=== PATIENT | male | born 1960 | race Caucasian/White ===

== ENCOUNTER 2016-07-07 10:51 | Emergency (ER) | payer OTHER ==
[~2016-07-07] VITALS: Wt 101.0 kg
[~2016-07-07 10:51] MED LIST: ALBU2.5V3 NEB; AMLO-218 PO; ASPI81TA3 PO; ATOR10TA65 PO; HYDR-3670 IV*; HYDR-906 PO; ISOS30TA5 PO; LISI40TA9 PO; LORA-441 PO; METO-429 PO; NIT4 SL
[2016-07-07] MEDS ORDERED: KETOROLAC 60 MG INJ IM STA (11:55)
[2016-07-07] MEDS ORDERED: DIAZEPAM 5 MG TAB PO ONE (12:00)
[2016-07-07] MEDS ORDERED: CYCL-319 PO (12:01)
[2016-07-07] MEDS ORDERED: NAPR-688 PO (12:01)
[2016-07-07] MEDS ORDERED: ALBU8.5H3 INH (12:02)
--- NOTE | 2016-07-07 12:08 | ERD ---
ER Documentation Chief Complaint Date/Time DATE: 07/07/16 TIME: 12:04 Chief Complaint cough and congestion fevers and ear pain for the past few days. HPI This is a 56-year-old male with history of COPD status post ear tubes presenting to the emergency department with multiple complaints. Patient complains of acute on chronic lower back pain that started to flare 2 days ago. He denies any trauma, he states the pain is moderate in severity and located in the bar region. He denies any saddle anesthesia, numbness and tingling, bladder or bowel incontinence. Patient also complains of cough and ear pain for the past 3 days. Patient denies any wheezing, chest pain or shortness of breath. Patient states that he usually uses pro-air for his COPD but he ran out. ROS All systems reviewed and are negative except as per history of present illness. Medications Home Meds Active Scripts Albuterol Sulfate* (Proair HFA*) 8.5 Gm Hfa.aer.ad, 2 PUFF INH Q4, #1 INHALER Prov:LYNNETTE RENE PA-C 07/07/16 Cyclobenzaprine Hcl* (Cyclobenzaprine Hcl*) 10 Mg Tablet, 10 MG PO TID, #20 TAB Prov:LYNNETTE RENE PA-C 07/07/16 Naproxen* (Naproxen*) 500 Mg Tablet, 500 MG PO BID Y for PAIN, #30 TAB Prov:LYNNETTE RENE PA-C 07/07/16 Reported Medications Albuterol Sulfate* (Albuterol Sulfate* Neb) 0.083%-3 Ml Neb, 2.5 MG NEB Q6, #30 VIAL 08/09/15 Nitroglycerin (Nitrostat) 0.4 Mg Subl, 0.4 MG SL Q5MIN Y for CHEST PAIN, BOTTLE 08/09/15 Lorazepam* (Ativan*) 0.5 Mg Tablet, 0.5 MG PO HS Y for INSOMNIA, #30 TAB 08/09/15 Hydrocodone Bit-Acetaminophen ([place]) 5-325 Mg Tablet, 1 TAB PO Q6 Y for MODERATE PAIN LEVEL 4-6, TAB 08/09/15 Hydralazine Hcl* (Hydralazine Hcl*) 10 Mg Tablet, 10 MG IV* Q6, #120 TAB 08/09/15 Metoprolol Tartrate* (Lopressor*) 50 Mg Tab, 100 MG PO DAILY, #60 TAB DO NOT GIVE WITH COREG. HOLD FOR SYS BP <110 OR HR <60 08/09/15 Isosorbide Mononitrate* (Isosorbide Mononitrate*) 30 Mg Tab.er.24h, 30 MG PO DAILY, TAB 08/09/15 Lisinopril* (Lisinopril*) 40 Mg Tablet, 40 MG PO DAILY, #30 TAB HOLD FOR SYS BP <110 08/09/15 Atorvastatin Calcium (Atorvastatin Calcium) 10 Mg Tablet, 10 MG PO QHS, #30 TAB 08/09/15 Aspirin* (Aspirin* Chew) 81 Mg Tab.chew, 81 MG PO DAILY, TAB.CHEW 08/09/15 Amlodipine Besylate* (Norvasc*) 10 Mg Tablet, 10 MG PO DAILY, TAB HOLD FOR SYS BP<110 08/09/15 Allergies Allergies: Coded Allergies: No Known Allergy (Unverified , 08/09/15) PMhx/Soc History of Surgery: No Anesthesia Reaction: No Hx Neurological Disorder: No Hx Respiratory Disorders: Yes (COPD) Hx Cardiac Disorders: Yes (POSITIVE STRESS TEST, HTN,HYPERLIPIDEMIA) Hx Psychiatric Problems: No Hx Miscellaneous Medical Probl: No Hx Alcohol Use: No Hx Substance Use: No Hx Tobacco Use: No Physical Exam Vitals Vital Signs Date Time Temp Pulse Resp B/P Pulse Ox O2 Delivery O2 Flow Rate FiO2 07/07/16 10:57 98.3 100 21 180/95 100 Physical Exam GENERAL: WD/WN, in no apparent distress, non-toxic appearing HENT: NC/AT, oropharynx non-erythematous, right tympanic membrane is normal with evidence of a tube in place, left tympanic membrane is without erythema or effusion there is good cone of light however there is no tube EYES: Conjunctiva normal NECK: Supple PULM: Patient had mild wheezing on examination, no evidence of rales, no evidence of stridor CV: Good capillary refill GI: Non-distended, no guarding BACK: no deformities noted, normal spinal curvature, TTP on lumbar region, non- tender on spine midline EXT: No clubbing, cyanosis, or edema NEURO: Moves on all fours, sensation intact, normal gait SKIN: intact PSYCH: Normal mood Results 24 hrs Current Medications Medications (Trade) Dose Ordered Sig/Arnel Route PRN Reason Start Time Stop Time Status Last Admin Dose Admin Ketorolac Tromethamine (Toradol) 60 mg ONCE STAT IM 07/07/16 11:55 07/07/16 11:57 DC Diazepam (Valium) 10 mg ONCE ONCE PO 07/07/16 12:00 07/07/16 12:01 DC Procedures/MDM This is a 56-year-old male sent to the emergency department with multiple complaints. Patient is complaining of acute on chronic back pain for the past 2 days, likely muscular strain due to history and exam, low suspicion for spinal abscess, vertebral fracture, cauda equina syndrome, spinal stenosis due to physical examination. Patient is neurovascularly intact. Patient was given 60 mg Toradol and 10 mg of IM in the ED with some relief. Patient is also complaining of cough, congestion and ear pain. On examination patient had mild wheezing he was breathing well on room air with a pulse ox of 100%. Patient is suitable for outpatient care, usually uses pro-air for his COPD however he ran out therefore I refilled his prescription. There is no evidence of pneumonia, strep pharyngitis, otitis media. Patient is suitable to follow-up with his primary care physician. Discussed return to the ER for any worsening symptoms. Patient understands and agrees with this plan. Prescription for pro-air, naproxen, and short-course Flexeril was provided Departure Diagnosis: Primary Impression: Low back pain Chronicity: acute Back pain laterality: bilateral Sciatica presence: without sciatica Qualified Code: M54.5 - Acute bilateral low back pain without sciatica Additional Impressions: History of COPD URI (upper respiratory infection) URI type: unspecified viral URI Qualified Code: J06.9 - Viral upper respiratory tract infection Condition: Stable Patient Instructions: Relieving Back Pain, Self-Care for Low Back Pain, Earache W/O Infection (Adult), Uri, Viral W/ Wheezing (Adult) Referrals: YOUR DOCTOR Additional Instructions: FOLLOW UP WITH YOUR PRIMARY CARE PHYSICIAN TODAY OR TOMORROW.Return to this facility if you are not improving as expected. Take all medicines as directed. Return to this facility if you are not improving as expected. You have been given a medicine which may cause drowsiness.DO NOT DRIVE OR OPERATE DANGEROUS MACHINERY while taking this medicine! LYNNETTE RENE-C Jul 07, 2016 12:08
== END 2016-07-07 12:40 | disposition home or self-care (01) ==
LOC: FTE 10:51
DX: M54.5 Low back pain (principal); J06.9 Acute upper respiratory infection, unspecified; J44.9 Chronic obstructive pulmonary disease, unspecified; I10 Essential (primary) hypertension; Z79.82 Long term (current) use of aspirin
CPT/HCPCS: 96372; J1885; Z7502; Z7610

== ENCOUNTER 2016-09-08 12:18 | Emergency (ER) | payer OTHER ==
[~2016-09-08] VITALS: Ht 188 cm; Wt 102.0 kg
[~2016-09-08 12:18] MED LIST changes: +ALBU8.5H3 INH; +CYCL-319 PO; +NAPR-688 PO
[2016-09-08 12:30] VITALS: Ht 188 cm; Wt 102.0 kg
--- NOTE | 2016-09-08 14:21 | ERD ---
ER Documentation Chief Complaint Date/Time DATE: 09/08/16 TIME: 14:11 Chief Complaint RASH X 1 MONTH, STARTED FROM BACK, NOW TO STOMACH AND LEGS HPI 56-year-old male who presented emergency room for rash. Stated that this rash started in his back and now extending to stomach and legs. Patient reports itchiness to rashes. Stated that itchiness is worse at night. Denies headache, loss of consciousness, dizziness, blurry vision, changes in vision, photophobia, facial pain, ear pain, throat pain, difficulty swallowing, neck pain, shoulder pain, chest pain, cough, hemoptysis, abdominal pain, back pain, loss of appetite, nausea, vomiting, hematochezia, diarrhea, constipation, urinary symptoms, bladder and bowel incontinences, extremity weakness, extremity tenderness, numbness or tingling sensation, difficulty walking, recent travel, recent exposure to illness, recent antibiotic use in the last 3 months, fever, chills. Allergy: NKDA PMH: Hypertension, hyperlipidemia. Medications: Surgery: Denies. Family history: Denies. Primary Social History: "I am in stability." Denies smoking, use of alcohol, use of illegal drugs. ROS All systems reviewed and are negative except as per history of present illness. Medications Home Meds Active Scripts Albuterol Sulfate* (Proair HFA*) 8.5 Gm Hfa.aer.ad, 2 PUFF INH Q4, #1 INHALER Prov:LYNNETTE RENE PA-C 07/07/16 Cyclobenzaprine Hcl* (Cyclobenzaprine Hcl*) 10 Mg Tablet, 10 MG PO TID, #20 TAB Prov:LYNNETTE RENE PA-C 07/07/16 Naproxen* (Naproxen*) 500 Mg Tablet, 500 MG PO BID Y for PAIN, #30 TAB Prov:LYNNETTE RENE PA-C 07/07/16 Reported Medications Albuterol Sulfate* (Albuterol Sulfate* Neb) 0.083%-3 Ml Neb, 2.5 MG NEB Q6, #30 VIAL 08/09/15 Nitroglycerin (Nitrostat) 0.4 Mg Subl, 0.4 MG SL Q5MIN Y for CHEST PAIN, BOTTLE 08/09/15 Lorazepam* (Ativan*) 0.5 Mg Tablet, 0.5 MG PO HS Y for INSOMNIA, #30 TAB 08/09/15 Hydrocodone Bit-Acetaminophen ([place]) 5-325 Mg Tablet, 1 TAB PO Q6 Y for MODERATE PAIN LEVEL 4-6, TAB 08/09/15 Hydralazine Hcl* (Hydralazine Hcl*) 10 Mg Tablet, 10 MG IV* Q6, #120 TAB 08/09/15 Metoprolol Tartrate* (Lopressor*) 50 Mg Tab, 100 MG PO DAILY, #60 TAB DO NOT GIVE WITH COREG. HOLD FOR SYS BP <110 OR HR <60 08/09/15 Isosorbide Mononitrate* (Isosorbide Mononitrate*) 30 Mg Tab.er.24h, 30 MG PO DAILY, TAB 08/09/15 Lisinopril* (Lisinopril*) 40 Mg Tablet, 40 MG PO DAILY, #30 TAB HOLD FOR SYS BP <110 08/09/15 Atorvastatin Calcium (Atorvastatin Calcium) 10 Mg Tablet, 10 MG PO QHS, #30 TAB 08/09/15 Aspirin* (Aspirin* Chew) 81 Mg Tab.chew, 81 MG PO DAILY, TAB.CHEW 08/09/15 Amlodipine Besylate* (Norvasc*) 10 Mg Tablet, 10 MG PO DAILY, TAB HOLD FOR SYS BP<110 08/09/15 Allergies Allergies: Coded Allergies: No Known Allergy (Unverified , 08/09/15) PMhx/Soc History of Surgery: No Anesthesia Reaction: No Hx Neurological Disorder: No Hx Respiratory Disorders: Yes (COPD) Hx Cardiac Disorders: Yes (POSITIVE STRESS TEST, HTN,HYPERLIPIDEMIA) Hx Psychiatric Problems: No Hx Miscellaneous Medical Probl: No Hx Alcohol Use: No Hx Substance Use: No Hx Tobacco Use: No Physical Exam Vitals Vital Signs Date Time Temp Pulse Resp B/P Pulse Ox O2 Delivery O2 Flow Rate FiO2 09/08/16 12:30 98.1 79 20 197/97 99 Physical Exam CONSTITUTIONAL: Well-appearing; well-nourished. HEAD: Normocephalic; atraumatic. EYES: Conjunctiva clear, sclera non-icteric, EOM intact. PERRLA. Ears: Hearing intact. EACs clear, TMs non-bulging, non-inflamed, translucent & mobile, ossicles normal appearance, No obstructions, no erythema, no discharges Nose: No obstructions. No polyps. No external lesions. Mucosa non-inflamed. No external lesions, septum and turbinates normal. No rhinorrhea. No discharges. Frontal sinus is non-tender to palpation. Maxillary sinus is non-tender to palpation. MOUTH: Moist mucous membranes, no lesion, no obstructions, no vesicles, no thrush, patent airway Throat: Uvula in midline. Right tonsil is +1 with no erythema, no exudate. Left tonsil is +1 with no erythema, no exudate. Tolerating secretions well. Good gag reflex. Patent airway. Neck: Supple, without lesions, bruits, or adenopathy. No mass. Thyroid non- enlarged and non-tender to palpation. CHEST: Symmetrical chest. Respirations even and not labored. No retractions noted. CARDIOVASCULAR: Normal S1, S2. RRR. No murmurs, gallops. RESPIRATORY: Normal chest excursion with respiration; breath sounds clear and equal bilaterally; no wheezes, rhonchi, or rales. Breathing even and unlabored. Speaking in clear, full, and complete sentences w/ ease. ABDOMEN: Normal bowel sounds normal. Soft, round, non-distended, non-guarding, no tenderness, no rebound, no organomegaly, no masses, no pulsating abdominal mass. No hernia. No peritoneal signs. : No CVA tenderness. BACK: Symmetrical shoulder. Spine is midline without deformity, tenderness. No evidence of trauma or deformity. PELVIS: Stable pelvis. No evidence of trauma or deformity. MUSCULOSKELETAL: Normal gait and station. No misalignment, asymmetry, crepitation, defects, tenderness, masses, effusions, decreased range of motion, instability, atrophy or abnormal strength or tone in the head, neck, spine, ribs , pelvis or extremities. No calf tenderness. NEUROVASCULAR: Distal pulses are present. Pedal pulse are present, equal, and normal. Capillary refills are < 2 seconds. NEUROLOGIC: Alert and oriented x4. Speaks full and clear sentences. Cranial Nerves II-XII normal. Sensation to pain, touch, and proprioception normal. Grossly unremarkable. No neurologic deficits. Romberg test is negative. PSYCHOLOGICAL: The patients mood and manner are appropriate. No hallucinations , delusions. Not SI. Not HI. Has the capacity to decide for self SKIN: Normal for age and ethnicity; warm; dry; good turgor; no apparent lesions or exudates. No hives, discoloration. Intact. Pruritic rash to back, truncal area, posterior knee consistent with scabies. Procedures/MDM Examination: Please see physical examination. Disease process, medical treatment was explained to the patient and family member. They verbalized understanding and agreed with the medical treatment, and follow-up care. Blood works unremarkable except Consultation: Differential diagnosis: Allergic reaction versus hives versus scabies Medical decision makin-year-old male who presented emergency room for rash. Stated that this rash started in his back and now extending to stomach and legs. Patient reports itchiness to rashes. Stated that itchiness is worse at night. Patient's complaint, patient's history about his complaint, my physical findings are consistent with my final diagnosis of scabies. Medications prescribed are the following: Permethrin topical. Prednisone. Benadryl. Patient and family member are made aware of the side effects and adverse reactions of the medications prescribed. Instructed on when to seek emergent and medical attention in case allergic/anaphylactic reactions or severe side effects and or adverse reactions to medications. Patient and family member verbalized understanding. Patient instructed Instructed to follow-up with his PCP in 24-48 hours. Instructed to Call 911 for chest pain, shortness of breath. Advised to come back here in ED as soon as possible for severity of symptoms which includes but not limited to: any new symptoms; shortness of breath/difficulty of breathing; cardiovascular changes; severe gastrointestinal symptoms; signs and symptoms of bleeding and or infection; signs of compartment syndrome/neurovascular changes; neurological changes/deficits. Patient and family member verbalized understanding. Upon discharge, patient is alert and oriented x 4, speaks full and clear sentences, denies pain, has no neurological deficits, has no neurovascular deficits, difficulty of breathing. Breathing even and unlabored. Lung sounds are clear to auscultation. Not in distress. Appears comfortable. Ambulatory with steady gait. Appears satisfied with care provided here in ED. Departure Diagnosis: Primary Impression: Rash Additional Impression: Scabies Condition: Stable Additional Instructions: Patient instructed Instructed to follow-up with his PCP in 24-48 hours. Instructed to Call 911 for chest pain, shortness of breath. Advised to come back here in ED as soon as possible for severity of symptoms which includes but not limited to: any new symptoms; shortness of breath/difficulty of breathing; cardiovascular changes; severe gastrointestinal symptoms; signs and symptoms of bleeding and or infection; signs of compartment syndrome/neurovascular changes; neurological changes/deficits. Patient and family member verbalized understanding. TANIA DEL ROSARIO Sep 08, 2016 14:21
[2016-09-08] MEDS ORDERED: PERM120L5 TP (14:22)
[2016-09-08] MEDS ORDERED: BEN25 PO (14:22)
[2016-09-08] MEDS ORDERED: PRED20TA PO (14:22)
== END 2016-09-08 14:37 | disposition home or self-care (01) ==
LOC: FTE 12:18
DX: R21 Rash and other nonspecific skin eruption (principal); B86 Scabies; I10 Essential (primary) hypertension; J44.9 Chronic obstructive pulmonary disease, unspecified; Z79.82 Long term (current) use of aspirin
CPT/HCPCS: 99283

== ENCOUNTER 2017-05-14 07:13 | Emergency (ER) | payer OTHER ==
[~2017-05-14] VITALS: Ht 185.4 cm; Wt 100.3 kg
[~2017-05-14 07:13] MED LIST changes: +BEN25 PO; +PERM120L5 TP; +PRED20TA PO
[2017-05-14 07:16] VITALS: Ht 185.4 cm; Wt 100.3 kg
[2017-05-14] MEDS ORDERED: IPRATROPIUM (NEB) 0.5 MG/2.5 ML AMP NEB STA (07:50)
[2017-05-14] MEDS ORDERED: predniSONE 20 MG TAB PO STA (07:50)
[2017-05-14] MEDS ORDERED: ALBUTEROL 0.083% (NEB) 2.5 MG/3 ML AMP NEB STA (07:50)
[2017-05-14] MEDS ORDERED: PRED50TA PO (07:53)
[2017-05-14] MEDS ORDERED: ALBU8.5H3 INH (07:53)
[2017-05-14] MEDS ORDERED: ACET500C5 PO (07:53)
--- NOTE | 2017-05-14 07:57 | ERD ---
ER Documentation Chief Complaint Chief Complaint cough x 4 days sob hx of copd HPI 57-year-old male presents the emergency department complaining of a nonproductive cough. Patient states over the last 4 days, he has had a nonproductive cough. He states it is worse at night. He states he is having wheezing. He reports her shortness of breath. Patient reports no fevers or chills or hemoptysis. ROS All systems reviewed and are negative except as per history of present illness. Medications Home Meds Active Scripts Acetaminophen* (Tylophen*) 500 Mg Capsule, 1000 MG PO Q6H Y for HEADACHE, #30 TAB Prov:ЕКАТЕРИНА FLYNN 05/14/17 Prednisone* (Prednisone*) 50 Mg Tablet, 50 MG PO DAILY for 5 Days, #5 TAB Prov:ЕКАТЕРИНА FLYNN 05/14/17 Albuterol Sulfate* (Proair HFA*) 8.5 Gm Hfa.aer.ad, 2 PUFF INH Q4H Y for WHEEZING AND SOB, #1 INHALER Prov:ЕКАТЕРИНА FLYNN 05/14/17 Diphenhydramine Hcl* (Benadryl*) 25 Mg Cap, 25 MG PO Q6 Y for ITCHING/RASH, #30 TAB Prov:TANIA DEL ROSARIO 09/08/16 Prednisone* (Prednisone*) 20 Mg Tab, 40 MG PO DAILY for 4 Days, TAB Prov:TANIA DEL ROSARIO 09/08/16 Permethrin (Permethrin) 120 Ml Liquid, 120 ML TP ONCE for 1 Day, #1 Prov:TANIA DEL ROSARIO 09/08/16 Albuterol Sulfate* (Proair HFA*) 8.5 Gm Hfa.aer.ad, 2 PUFF INH Q4, #1 INHALER Prov:LYNNETTE RENE PA-C 07/07/16 Cyclobenzaprine Hcl* (Cyclobenzaprine Hcl*) 10 Mg Tablet, 10 MG PO TID, #20 TAB Prov:LYNNETTE RENE PA-C 07/07/16 Naproxen* (Naproxen*) 500 Mg Tablet, 500 MG PO BID Y for PAIN, #30 TAB Prov:LYNNETTE RENE PA-C 07/07/16 Reported Medications Albuterol Sulfate* (Albuterol Sulfate* Neb) 0.083%-3 Ml Neb, 2.5 MG NEB Q6, #30 VIAL 08/09/15 Nitroglycerin (Nitrostat) 0.4 Mg Subl, 0.4 MG SL Q5MIN Y for CHEST PAIN, BOTTLE 08/09/15 Lorazepam* (Ativan*) 0.5 Mg Tablet, 0.5 MG PO HS Y for INSOMNIA, #30 TAB 08/09/15 Hydrocodone Bit-Acetaminophen ([place]) 5-325 Mg Tablet, 1 TAB PO Q6 Y for MODERATE PAIN LEVEL 4-6, TAB 08/09/15 Hydralazine Hcl* (Hydralazine Hcl*) 10 Mg Tablet, 10 MG IV* Q6, #120 TAB 08/09/15 Metoprolol Tartrate* (Lopressor*) 50 Mg Tab, 100 MG PO DAILY, #60 TAB DO NOT GIVE WITH COREG. HOLD FOR SYS BP <110 OR HR <60 08/09/15 Isosorbide Mononitrate* (Isosorbide Mononitrate*) 30 Mg Tab.er.24h, 30 MG PO DAILY, TAB 08/09/15 Lisinopril* (Lisinopril*) 40 Mg Tablet, 40 MG PO DAILY, #30 TAB HOLD FOR SYS BP <110 08/09/15 Atorvastatin Calcium (Atorvastatin Calcium) 10 Mg Tablet, 10 MG PO QHS, #30 TAB 08/09/15 Aspirin* (Aspirin* Chew) 81 Mg Tab.chew, 81 MG PO DAILY, TAB.CHEW 08/09/15 Amlodipine Besylate* (Norvasc*) 10 Mg Tablet, 10 MG PO DAILY, TAB HOLD FOR SYS BP<110 08/09/15 Allergies Allergies: Coded Allergies: No Known Allergy (Unverified , 08/09/15) PMhx/Soc History of Surgery: No Anesthesia Reaction: No Hx Neurological Disorder: No Hx Respiratory Disorders: Yes (COPD) Hx Cardiac Disorders: Yes (POSITIVE STRESS TEST, HTN,HYPERLIPIDEMIA) Hx Psychiatric Problems: No Hx Miscellaneous Medical Probl: No Hx Alcohol Use: No Hx Substance Use: No Hx Tobacco Use: No Smoking Status: Never smoker FmHx Noncontributory for chief complaint Physical Exam Vitals Vital Signs Date Time Temp Pulse Resp B/P Pulse Ox O2 Delivery O2 Flow Rate FiO2 05/14/17 07:16 98.5 91 18 150/95 98 Physical Exam GENERAL: The patient is well developed and appropriate for usual state of health in no apparent distress HEENT: Pupils equal, round, and reactive to light. EOMI. There is no scleral icterus. NECK: C-spine is soft and supple, there is no meningismus. There is no cervical lymphadenopathy. LUNGS: Wheezing noted bilaterally with no tachypnea, retractions or use of accessory muscles HEART: Regular rate and rhythm, no murmurs, clicks, rubs or gallops. Results 24 hrs Current Medications Medications (Trade) Dose Ordered Sig/Arnel Route PRN Reason Start Time Stop Time Status Last Admin Dose Admin Albuterol (Proventil 0.083% (Neb)) 5 mg ONCE STAT NEB 05/14/17 07:50 05/14/17 07:51 DC Ipratropium [place] (Atrovent 0.02% (Neb)) 0.5 mg ONCE STAT NEB 05/14/17 07:50 05/14/17 07:51 DC Prednisone (Prednisone) 60 mg ONCE STAT PO 05/14/17 07:50 05/14/17 07:51 DC Procedures/MDM Patient was taken to a room, seen and examined. Patient received breathing treatments and remained nontoxic with no evidence of increased work of breathing. Medical decision makin-year-old male presents the emergency department with what appears to be bronchospasm. At this time, patient shows no evidence of pneumonia, hypoxemia or increased work of breathing. After supportive care, he appears appropriate for outpatient management Departure Diagnosis: Primary Impression: Bronchitis Condition: Stable Patient Instructions: Bronchitis With Wheezing (Adult) Additional Instructions: Please see your doctor if not better in the next 2-3 days or return here. ЕКАТЕРИНА FLYNN May 14, 2017 07:57
== END 2017-05-14 08:30 | disposition home or self-care (01) ==
LOC: FTE 07:13
DX: J40 Bronchitis, not specified as acute or chronic (principal); J44.9 Chronic obstructive pulmonary disease, unspecified; I10 Essential (primary) hypertension; Z79.82 Long term (current) use of aspirin
CPT/HCPCS: J7512; Z7502; Z7610

== ENCOUNTER 2017-12-27 10:16 | Emergency (ER) | END 2017-12-27 14:04 | disposition home or self-care (01) ==